=== PATIENT | male | born 1970 | race African-American/Black ===

== ENCOUNTER 2019-07-06 10:19 | Emergency (ER) | payer OTHER ==
[~2019-07-06] VITALS: Ht 172.7 cm; Wt 72.6 kg
[2019-07-06 10:52] LABS: ABSOLUTE NEUTROPHILS 8.1 thou/uL (1.4-8.2); BASOPHILS 0.1 % (0.0-2.0); EOSINOPHILS 0.4 % (0.0-3.0); HEMATOCRIT 47.9 % (42.0-52.0); HEMOGLOBIN 16.2 gm/dL (14.0-18.0); LYMPHOCYTES 3.2 % (24.0-44.0); MCH 30.4 pg (26.0-34.0); MCHC 33.9 g/dL (28.0-37.0); MCV 89.5 fL (80.0-100.0); MONOCYTES 3.5 % (1.0-8.0); PLATELET COUNT 190 thou/uL (150-400); POLYS 92.8 % (36.0-66.0); RBC 5.35 mil/uL (4.50-6.00); RDW 13.5 % (10.5-14.5); WBC 8.8 thou/uL (4.0-11.0)
[2019-07-06 11:05] LABS: CALCIUM 9.2 mg/dL (8.5-10.1); CREATININE 1.1 mg/dL (0.7-1.3); POTASSIUM 3.9 mmol/L (3.5-5.1)
[2019-07-06 11:11] LABS: ALBUMIN 4.2 g/dL (3.4-5.0); DIRECT BILIRUBIN 0.2 mg/dL (<0.1-0.2); TOTAL PROTEIN 8.9 g/dL (6.4-8.2)
[2019-07-06 12:20] LABS: URINE BILIRUBIN NEGATIVE (Negative); URINE BLOOD NEGATIVE (Negative); URINE CLARITY CLEAR; URINE COLOR YELLOW; URINE GLUCOSE-RANDOM* NEGATIVE (Negative); URINE KETONES 1+ (Negative); URINE LEUKOCYTES-REFLEX NEGATIVE (Negative); URINE NITRITE-REFLEX NEGATIVE (Negative); URINE PROTEIN (DIPSTICK) NEGATIVE (Negative); URINE SPECIFIC GRAVITY 1.025 (1.005-1.035); URINE UROBILINOGEN 0.2 E.U./dl (0.2-1.0)
[2019-07-06 14:05] VITALS: BP 131/82
== END 2019-07-06 14:05 | disposition home or self-care (01) ==
LOC: ER 10:19
PROVIDERS: Emergency Medicine
DX: R10.84 Generalized abdominal pain (principal); M79.10 Myalgia, unspecified site

== ENCOUNTER 2020-10-11 07:23 | Emergency (ER) | payer OTHER ==
[~2020-10-11] VITALS: Ht 180.3 cm; Wt 74.8 kg
[2020-10-11] MEDS ORDERED: NOHOMEMEDICATIONS (07:39)
[2020-10-11] MEDS ORDERED: VALIUM10 MG PO (08:32)
[2020-10-11] MEDS ORDERED: IBUPROFEN 600600 M1 PO (08:32)
[2020-10-11 08:35] VITALS: BP 111/81
[2020-10-12] MEDS ORDERED: NORCO5 PO (08:34)
== END 2020-10-11 08:35 | disposition home or self-care (01) ==
LOC: ER 07:23
DX: M16.12 Unilateral primary osteoarthritis, left hip (principal); M25.551 Pain in right hip; M54.5 Low back pain; J44.9 Chronic obstructive pulmonary disease, unspecified; F17.210 Nicotine dependence, cigarettes, uncomplicated; Z85.118 Personal history of other malignant neoplasm of bronchus and lung

== ENCOUNTER 2020-10-12 08:19 | Emergency (ER) | payer OTHER ==
[~2020-10-12] VITALS: Ht 180.3 cm; Wt 74.8 kg
--- NOTE | ~2020-10-12 | EMS ---
[facility] [address] [place] [address] EMS Patient Care Report Name: JUDD GABRIEL Room #: DEP MARY ALICE Yousif#: [id number] Admission: 10/12/20 Attend Phys: Discharge: 10/12/20 Date of : 66 Report #: [id number] THIS REPORT FOR: //name// Report Transmitted: 10/12/2020 23:04 EMS Care Summary [place], [place] Incident [id number] @ 10/12/2020 07:44 Incident Location [address] [place] [id number] Patient JUDD GABRIEL Male, 50 Years 1970 Patient Address [address] [place] [id number] Patient History Chronic Obstructive Pulmonary Disease (COPD),Arthritis,Lung Cancer,Post Traumatic Stress Disorder (PTSD), Patient Allergies No known allergies, Patient Medications None Reported, Chief Complaint pain to lower back and hips Disposition Transported No Lights/[place] [facility] Reason Sick Person Transported To [facility] Narrative pt. states that he has a complaint of lower back and hip pain that he has had for a couple of days and that his pain is due to his hx of arthritis and he was [facility] [address] [place] [address] EMS Patient Care Report Name: JUDD GABRIEL Room #: DEP Nica#: [id number] Admission: 10/12/20 Attend Phys: Discharge: 10/12/20 Date of : 66 Report #: [id number] seen for same complaint at [facility] yesterday and sent home with pain meds, which he has taken, but he isn't getting any better. pt. denied any other complaints or loc. pt. was laying supine in bed with bystander present. pt. was in no distress. pt. was laying on a heating pad and he was able to sit up and ambulate with no difficulties. no change in pt. status enroute. Initial Vitals @08:13P: 79,R: 24,BP: 136/90,Pain: 10/10,GCS: 15,CO: 7,SpO2: 98,Revised Trauma: 12, @08:01P: 79,R: 24,BP: 129/87,Pain: 10/10,GCS: 15,CO: 0,SpO2: 100,Revised Trauma: 12, Assessments @07:54MENTAL:No Abnormalities,SKIN:No Abnormalities,HEENT:Head/Face: No Abnormalities,Eyes: No Abnormalities,Neck/Airway: No Abnormalities,LUNG SOUNDS:General: No Abnormalities,Left Upper: No Abnormalities,Right Upper: No Abnormalities,Left Lower: No Abnormalities,Right Lower: No Abnormalities,ABDOMEN:General: No Abnormalities,Left Upper: No Abnormalities,Right Upper: No Abnormalities,Left Lower: No Abnormalities,Right Lower: No Abnormalities,PELVIS//GI:Pelvis Other,EXTREMITIES:Left Arm: No Abnormalities,Right Arm: No Abnormalities,Left Leg: No Abnormalities,Right Leg: No Abnormalities,PULSE:NEURO:No Abnormalities, Impression Pain (Non-Traumatic) Procedures @07:54ALS AssessmentResponse: Unchanged Timeline 07:42,Call Received 07:42,Dispatch Notified 07:44,Dispatched 07:44,En Route 07:51,On Scene 07:54,At Patient 07:54,ALS Assessment,Response: Unchanged 08:01,BP: 129/87 M,PULSE: 79,RR: 24 R,SPO2: 100 Ox,ETCO2: ,BG: ,PAIN: 10,GCS: 15, 08:03,Depart Scene 08:13,BP: 136/90 M,PULSE: 79,RR: 24 R,SPO2: 98 Ox,ETCO2: ,BG: ,PAIN: 10,GCS: 15, 08:15,At Destination 08:36,Call Closed [facility] [address] [place] [address] EMS Patient Care Report Name: JUDD GABRIEL Dimitry Room #: [id number] Admission: 10/12/20 Attend Phys: Discharge: 10/12/20 Date of : 66 Report #: [id number] Disclaimer [email or web address] Copyright 2020 [employer] This EMS Care Summary contains data elements from the applicable legal record (which may be displayed differently). It is designed to provide pertinent information for the following purposes: continuity of care, clinical quality, and state data reporting. The complete legal record is available to ED staff and administrators of the receiving hospital in [employer] Patient Tracker. All data is provided "as is."
[~2020-10-12 08:19] MED LIST: IBUPROFEN 600600 M1 PO; NOHOMEMEDICATIONS; VALIUM10 MG PO
[2020-10-12] MEDS ORDERED: NORCO5 PO (08:34)
[2020-10-12 08:53] VITALS: BP 127/62
== END 2020-10-12 08:53 | disposition home or self-care (01) ==
LOC: ER 08:19
DX: G89.29 Other chronic pain (principal); M25.552 Pain in left hip; J44.9 Chronic obstructive pulmonary disease, unspecified